=== PATIENT | male | born 1955 | race Caucasian/White ===

== ENCOUNTER 2021-04-17 15:24 | Emergency (ER) | payer MEDICARE, OTHER ==
[~2021-04-17] VITALS: Ht 177.8 cm; Wt 87.0 kg
[2021-04-17 15:49] VITALS: BP_SYST 131; BP_SYST 132; BP_SYST 136; BP_DIAS 68; BP_DIAS 69; BP_DIAS 72
--- NOTE | 2021-04-17 16:36 | ED General ---
General Chief Complaint: Dizziness/Syncope Stated Complaint: DIZZY Nursing Triage Note: Patient presents to the ED with c/o dizziness. 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 He states, "I felt like I was drunk". Patient still reports, "feeling weird" upon arrival. 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 He states that he felt like he was drunk and like he might fall over. He tried walking up to the front of the building and was leaning to the side. He did not actually fall to the ground but felt like he might. He denied any numbness, tingling, weakness in any of his arms or legs. He had no change in his vision. He denied having any chest pain or abdominal pain. He states he had a mild headache behind his eyes and in the frontal area. He had just eaten lunch arou nd 1 PM. He denies having symptoms like this before. Nothing seems to make it better and over time it was gradually improving. He has tried going to urgent care and they directed him here to the emergency department. He states overall he is generally healthy and does not take medications or have chronic medical conditions. His family tends to be healthy. Timing/Duration: 1-3 Hours (around [id number]) Associated Systoms: No Chest Pain, No Cough, No Diaphoresis, No Fever/Chills; Headaches (mild frontal ); No Loss of Appetite, No Malaise, No Nausea/Vomiting, No Rash, No Seizure, No Shortness of Air, No Syncope, No Weakness Allergies and Home Medications Allergies Coded Allergies: No Known Drug Allergies (Unverified , 04/17/21) Patient Home Medication List Home Medication List Reviewed: Yes Review of Systems Review of Systems Constitutional: No chills, No diaphoresis; dizziness; No fever, No weakness EENTM: No ear discharge, No hearing loss, No ear pain, No blurred vision, No double vision, No vision loss, No epistaxis, No nose congestion Respiratory: No cough, No short of breath Cardiovascular: No chest pain Gastrointestinal: No nausea, No vomiting Genitourinary: No dysuria, No frequency Musculoskeletal: no symptoms reported Skin: No rash Psychiatric/Neurological: See HPI; Denies Numbness, Denies Paresthesia, Denies Tingling, Denies Weakness Past Gexoevr-Cvkhaf-Yynnma Hx Patient Social History Tobacco Use?: No Use of E-Cig and/or Vaping dev: No Substance use?: No Alcohol Use?: Yes Alcohol type: Beer Alcohol Frequency: Daily Pt feels they are or have been: No Immunizations Up To Date First/Initial COVID19 Vaccinat: Not currently vaccinated Past Medical History Surgeries: No Respiratory: No Cardiac: No Neurological: No Genitourinary: No Gastrointestinal: No Musculoskeletal: No Endocrine: No HEENT: No Psychosocial: No Integumentary: No Physical Exam Vital Signs Vital Signs - First Documented 04/17/21 15:47 Temp 36.4 Pulse 72 Resp 18 B/P (MAP) 157/79 (105) Pulse Ox 96 O2 Delivery Room Air Capillary Refill : Less Than 3 Seconds Height, Weight, BMI Height: '" Weight: lbs. oz. kg; 27.00 BMI Method: General Appearance: No Apparent Distress, WD/WN Eyes: Bilateral Eye PERRL, Bilateral Eye EOMI HEENT: TMs Normal, Normal ENT Inspection, Pharynx Normal, Moist Mucous Membranes, Other (No nystagmus. No dizziness elicited with movement of head or eyes) Neck: Full Range of Motion, Normal Inspection, Non Tender, Supple; No Carotid Bruit Respiratory: Chest Non Tender, Lungs Clear, Normal Breath Sounds, No Accessory Muscle Use, No Respiratory Distress Cardiovascular: No Murmur, Normal Peripheral Pulses Gastrointestinal: Normal Bowel Sounds, No Pulsatile Mass, Non Tender, Soft Rectal: Deferred Extremity: Normal Capillary Refill, Normal Inspection, Normal Range of Motion, Non Tender, No Calf Tenderness, No Pedal Edema Neurologic/Psychiatric: Alert, Oriented x3, No Motor/Sensory Deficits, Normal 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/Affect, 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 Norm as Tested Skin: Normal Color, Warm/Dry Progress/Results/Core Measures Suspected Sepsis SIRS Temperature: Pulse: 82 Respiratory Rate: 18 Laboratory Tests 04/17/21 16:25: White Blood Count 8.7 Blood Pressure 131 /69 Mean: 89 Laboratory Tests 04/17/21 16:25: Creatinine 1.25, INR Comment 1.0, Platelet Count 239, Total Bilirubin 0.6 Results/Orders Lab Results Laboratory Tests Test 04/17/21 16:25 04/17/21 17:15 Range/Units White Blood Count 8.7 4.3-11.0 10^3/uL Red Blood Count 4.55 4.30-5.52 10^6/uL Hemoglobin 14.5 13.3-17.7 g/dL Hematocrit 42 40-54 % Mean Corpuscular Volume 93 80-99 fL Mean Corpuscular Hemoglobin 32 25-34 pg Mean Corpuscular Hemoglobin Concent 34 32-36 g/dL Red Cell Distribution Width 11.7 10.0-14.5 % Platelet Count 239 130-400 10^3/uL Mean Platelet Volume 9.9 9.0-12.2 fL Immature Granulocyte % (Auto) 1 % Neutrophils (%) (Auto) 70 42-75 % Lymphocytes (%) (Auto) 18 12-44 % Monocytes (%) (Auto) 10 0-12 % Eosinophils (%) (Auto) 1 0-10 % Basophils (%) (Auto) 1 0-10 % Neutrophils # (Auto) 6.1 1.8-7.8 X 10^3 Lymphocytes # (Auto) 1.5 1.0-4.0 X 10^3 Monocytes # (Auto) 0.9 0.0-1.0 X 10^3 Eosinophils # (Auto) 0.1 0.0-0.3 10^3/uL Basophils # (Auto) 0.0 0.0-0.1 10^3/uL Immature Granulocyte # (Auto) 0.1 0.0-0.1 10^3/uL Prothrombin Time 13.3 12.2-14.7 SEC INR Comment 1.0 0.8-1.4 Activated Partial Thromboplast Time 26 24-35 SEC Sodium Level 133 L 135-145 MMOL/L Potassium Level 4.5 3.6-5.0 MMOL/L Chloride Level 100 98-107 MMOL/L Carbon Dioxide Level 26 21-32 MMOL/L Anion Gap 7 5-14 MMOL/L Blood Urea Nitrogen 15 7-18 MG/DL Creatinine 1.25 0.60-1.30 MG/DL Estimat Glomerular Filtration Rate 58 BUN/Creatinine Ratio 12 Glucose Level 96 70-105 MG/DL Calcium Level 9.1 8.5-10.1 MG/DL Corrected Calcium 9.0 8.5-10.1 MG/DL Magnesium Level 2.3 1.6-2.4 MG/DL Total Bilirubin 0.6 0.1-1.0 MG/DL Aspartate Amino Transf (AST/SGOT) 18 5-34 U/L Alanine Aminotransferase (ALT/SGPT) 16 0-55 U/L Alkaline Phosphatase 51 40-136 U/L Troponin I < 0.30 <0.30 NG/ML Pro-B-Type Natriuretic Peptide 46.3 <75.0 PG/ML Total Protein 6.8 6.4-8.2 GM/DL Albumin 4.1 3.2-4.5 GM/DL Lipase 24 8-78 U/L Urine Color YELLOW Urine Clarity CLEAR Urine pH 7.5 5-9 Urine Specific [place] 1.015 L 1.016-1.022 Urine Protein NEGATIVE NEGATIVE Urine Glucose (UA) NEGATIVE NEGATIVE Urine Ketones NEGATIVE NEGATIVE Urine Nitrite NEGATIVE NEGATIVE Urine Bilirubin NEGATIVE NEGATIVE Urine Urobilinogen 0.2 < = 1.0 MG/DL Urine Leukocyte Esterase NEGATIVE NEGATIVE Urine RBC (Auto) NEGATIVE NEGATIVE Urine RBC RARE /HPF Urine WBC RARE /HPF Urine Squamous Epithelial Cells RARE /HPF Urine Crystals NONE /LPF Urine Bacteria NEGATIVE /HPF Urine Casts NONE /LPF Urine Mucus NEGATIVE /LPF Urine Culture Indicated NO My Orders Orders - PLACIDO MUNOZ MD Magnesium (04/17/21 16:03) Chest 1 View Ap/Pa Only (04/17/21 16:03) Ekg Tracing (04/17/21 16:03) Comprehensive Metabolic Panel (04/17/21 16:03) Protime With Inr (04/17/21 16:03) Partial Thromboplastin Time (04/17/21 16:03) O2 (04/17/21 16:03) Monitor-Rhythm Ecg Trace Only (04/17/21 16:03) Ed Iv/Invasive Line Start (04/17/21 16:03) Lipase (04/17/21 16:03) Troponin I Fs (04/17/21 16:03) Probnp Fs (04/17/21 16:03) Ct Head Wo (04/17/21 16:03) Ua Culture If Indicated (04/17/21 17:15) Ns Iv 1000 Ml (Sodium Chloride 0.9%) (04/17/21 17:27) Ct Angio Head/Neck (04/17/21 17:27) Iohexol Injection (Omnipaque 350 Mg/Ml 1 (04/17/21 17:30) Received Contrast (Hold Metformin- Contr (04/17/21 17:30) Ns (Ivpb) (Sodium Chloride 0.9% Ivpb Bag (04/17/21 17:30) Sodium Chloride Flush (Catheter Flush Sy (04/17/21 17:30) Cbc With Automated Diff (04/17/21 16:25) Medications Given in ED Current Medications Medications Dose Ordered Sig/Kimani Route Start Time Stop Time Status Last Admin Dose Admin Iohexol 80 ml ONCE ONCE IV 04/17/21 17:30 04/17/21 18:04 DC 04/17/21 17:47 80 ML Sodium Chloride 10 ml NEEDED PRN IV 04/17/21 17:30 04/17/21 18:58 DC 04/17/21 17:47 10 ML Sodium Chloride 100 ml ONCE ONCE IV 04/17/21 17:30 04/17/21 18:04 DC 04/17/21 17:47 80 ML Vital Signs/I&O 04/17/21 04/17/21 04/17/21 15:47 15:49 19:03 Temp 36.4 36.4 Pulse 72 72 64 73 82 Resp 18 18 B/P (MAP) 157/79 (105) 132/68 (89) 143/76 136/72 (93) 131/69 (89) Pulse Ox 96 96 O2 Delivery Room Air Room Air Capillary Refill : Less Than 3 Seconds Blood Pressure Mean: 89 Progress Note #1: Progress Note Obtain basic labs as well as electrocardiogram, cardiac labs, urinalysis, chest x-ray, CT scan of his head. He does not have any fluid behind his ears or cerumen impaction seen on exam. He could still have an inner ear vertigo type issue. However with no nystagmus or change with movement of his head that is decreased as well. The CT head would help to evaluate for possible stroke, intracerebral hemorrhage, mass, sinusitis. Labs to help evaluate for electrolyte imbalance, cardiac disease, renal or hepatic dysfunction. Monitor for arrhythmia. Progress Note #2: Progress Note Electrocardiogram did not show any acute ST elevation or arrhythmia. His chest x-ray was clear and the CT scan of his head did not demonstrate any acute hemorrhage or definite stroke. His labs were not showing any acute abnormal findings on the blood count. The chemistry panel was delayed due to mechanical layers with the instrument. Once the chemistry was back and his creatinine levels show no evidence of renal dysfunction. He was seen to not be elevated a CT angiogram was performed to look for clots or narrowing of the blood vessels. Progress Note #3: Progress Note Urinalysis did not demonstrate any acute dehydration however he had mild elevation of his creatinine and GFR so a liter of normal saline was administered. The CT angiogram did not demonstrate any definite clot or obstruction. 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 Counseled patient and family about results and as he was feeling a little bit better had no definite stroke or abnormality to account for symptoms were found I did advise him that admission and continued monitoring as well as possible echocardiogram and MRI might be additional testing that could be pe rformed to help further look for reasons he would have this acute onset dizziness. Patient and spouse instead felt that they would prefer to follow-up with the clinic and return if he had recurrent or worsening symptoms. As he had no acute abnormality on his testing that indicated severe findings and his symptoms had improved without treatment will allow him to go home with close clinic follow up and strict return precautions if he has worsening or new symptoms. ECG Initial ECG Impression Date: Apr 17, 2021 Initial ECG Impression Time: 15:49 Initial ECG Rate: 72 Initial ECG Rhythm: Normal Sinus Initial ECG Comparisson: No Previous ECG Available Comment Normal sinus rhythm with heart rate of 72 bpm. OH interval [address] elevation. QT interval 388 ms with a QTc interval of 425 ms. No prior tracing available for comparison. Diagnostic Imaging Diagonstic Imaging: CT Plain Films/CT/US/NM/MRI: head Comments [facility]. [place], [place] NAME: SUJATA MANRIQUEZ Karen [facility] REC#: [id number] PT STATUS: REG ER : 1955 PHYSICIAN: PLACIDO MUNOZ MD ADMIT DATE: 04/17/21/ER FS Signed Date of Exam:04/17/21 CT HEAD WO PROCEDURE: CT head without contrast. TECHNIQUE: Multiple contiguous axial images were obtained through the brain without the use of intravenous contrast. Auto Exposure Controls were utilized during the CT exam to meet ALARA standards for radiation dose reduction. INDICATION: 65-year-old male presents to the Emergency Room with dizziness and short bout of difficulty walking. COMPARISON: None. FINDINGS: The midline structures are not displaced. There are senescent changes in the brain with involutional changes and generalized atrophy, advanced for age. There is otherwise no evidence of mass, mass effect, hydrocephalus, or hemorrhage. The sanford-white differentiation is normal. There is no sulcal effacement. There are no abnormal extra-axial fluid collections or hemorrhage. The basilar cisterns appear normal. The sinuses, orbits, and mastoid air cells are unremarkable. Bone windows show no calvarial changes. IMPRESSION: Slightly advanced for age generalized atrophy with involutional changes; otherwise, unremarkable nonenhanced CT head. Dictated by: Dictated on workstation # [id number] Dict: 04/17/211643 Trans: 04/17/211648 [id number] Interpreted by: GÓMEZ KENNEDY MD Electronically signed by: GÓMEZ KENNEDY MD 04/17/211648 Reviewed: Reviewed by Nd Diagonstic Imaging: Xray Plain Films/CT/US/NM/MRI: chest Comments [facility] [place], [place] NAME: MITRASUJATA D [facility] REC#: [id number] PT STATUS: REG ER : 1955 PHYSICIAN: PLACIDO MUNOZ MD ADMIT DATE: 04/17/21/ER FS Signed Date of Exam:04/17/21 CHEST 1 VIEW AP/PA ONLY PATIENT HISTORY: Dizzy, near syncope. TECHNIQUE: Single frontal view of the chest. COMPARISON: None. FINDINGS: The lung volumes are normal. No focal consolidation is seen. No large pleural effusion or pneumothorax is seen. The cardiomediastinal silhouette is normal in size and contour. No acute osseous abnormality is seen. IMPRESSION: No acute pulmonary abnormality seen. Dictated by: Dictated on workstation # [id number] Dict: 04/17/211641 Trans: 04/17/211643 [facility] [id number] Interpreted by: NIA POTTS MD Electronically signed by: NIA POTTS MD 11/17/21 1644 Reviewed: Reviewed by Me Diagonstic Imaging: CT Plain Films/CT/US/NM/MRI: head (and neck angiogram) Comments [facility] [place], [place] NAME: SUJATA MANRIQUEZ [facility] REC#: [id number] PT STATUS: REG ER : 1955 PHYSICIAN: PLACIDO MUNOZ MD ADMIT DATE: 04/17/21/ER FS Draft Date of Exam:04/17/21 CT ANGIO HEAD/NECK PROCEDURE: CT angiography of the head and CT angiography of the neck with and without contrast. TECHNIQUE: Contiguous noncontrast images were obtained from the skull base through the vertex. After intravenous contrast administration, helical CT angiography of the neck was performed. Source data was reformatted into 3D MIP projections. Delayed post contrast acquisition was also obtained. Auto Exposure Controls were utilized during the CT exam to meet ALARA standards for radiation dose reduction. INDICATION: Dizziness. COMPARISON: Noncontrast CT head from earlier the same day. FINDINGS: CTA NECK: Included portions of the aortic arch are unremarkable. Origins of the major arch vessels are patent. Bilateral common carotid arteries are normal in course and caliber. Carotid bulbs are unremarkable as well. Bilateral internal carotid arteries are also normal in course and caliber. By NASCET criteria, there is no focal significant stenosis. There is no evidence of dissection or thrombosis. Within the posterior circulation, left vertebral artery is dominant. Right vertebral artery appears to terminate within the PICA. Vertebral arteries are otherwise patent. There is no evidence of dissection or thrombosis. Osseous structures show age-related degenerative changes. No acute osseous abnormality is seen. No lytic or blastic bony lesions are identified. Surrounding superficial soft tissue structures show no additional acute abnormality. Included portions of the lung apices are clear. CTA [place]: Anterior and middle cerebral arteries show normal opacification. There is no evidence of large vessel occlusion, aneurysm or vascular malformation. Within the posterior circulation, superior margins of the basilar artery have a diminutive appearance. There is also diminutive appearance of the bilateral superior cerebellar arteries. Bilateral P1 segments are absent. Bilateral posterior communicating arteries, however, are widely patent. There is otherwise normal appearance of the bilateral posterior cerebral arteries. Findings are consistent with persistent origins. There is no evidence of large vessel occlusion, aneurysm or vascular malformation within the posterior circulation. POSTCONTRAST CT HEAD: Postcontrast images show no abnormal areas of enhancement. There is no new mass effect or midline shift. There is no new loss of sanford-white matter junction differentiation to suggest new acute territorial infarct. No intra-axial or extra-axial intracranial hemorrhage is seen. No other extra-axial masses or fluid collections are identified. Bony calvarium remains intact. Visualized portions of the paranasal sinuses and mastoid air cells are clear. IMPRESSION: 1. Asymmetric diminutive appearance of the right vertebral artery, which appears to terminate in the right PICA. This is likely a congenital or developmental chronic finding. Otherwise, CTA of the neck is unremarkable. 2. Diminutive appearance to the superior portions of the basilar artery with persistent origin of the bilateral posterior cerebral arteries. This too is likely a developmental or congenital chronic finding. There is otherwise no evidence of large vessel occlusion, aneurysm or vascular malformation within the intracranial circulation. 3. No new acute intracranial abnormality. No CT evidence of acute infarct, mass or hemorrhage. Dictated on workstation # [id number] Dict: 04/17/21 1801 Trans: 04/17/21 1822 [facility] [id number] Interpreted by: TUNG CARTAGENA MD Electronically signed by: Reviewed: Reviewed by Me Departure Impression Primary Impression: Dizziness Additional Impression: Syncope, near Disposition: 01 HOME, SELF-CARE Condition: Improved Departure-Patient Inst. Decision time for Depature: 18:52 Referrals: DEVIN WHITE DO Patient Instructions: Dizziness, Adult ED, Near Fainting (DC) Add. Discharge Instructions: Drink more water and stay well hydrated. Check with Dr. White and his nurse practitioner Stevan about your symptoms from today. Call them tomorrow to let them know you were seen and had CT or CAT scans of the head and neck with and without contrast but no sign of bleeding or stroke. Your labs and heart tests all looked ok as well. If you have more problems or new symptoms return or seek medical care as you may need further testing such as ultrasound of your heart and MRI of the brain or other testing depending on your symptoms. All discharge instructions reviewed with patient and/or family. Voiced understanding. PLACIDO MUNOZ MD Apr 17, 2021 16:36
--- NOTE | 2021-04-17 16:44 | Diagnostic Imaging Report ---
PATIENT HISTORY: Dizzy, near syncope. TECHNIQUE: Single frontal view of the chest. COMPARISON: None. FINDINGS: The lung volumes are normal. No focal consolidation is seen. No large pleural effusion or pneumothorax is seen. The cardiomediastinal silhouette is normal in size and contour. No acute osseous abnormality is seen. IMPRESSION: No acute pulmonary abnormality seen. Dictated by: Dictated on workstation # [id number]
--- NOTE | 2021-04-17 16:47 | Diagnostic Imaging Report ---
PROCEDURE: CT head without contrast. TECHNIQUE: Multiple contiguous axial images were obtained through the brain without the use of intravenous contrast. Auto Exposure Controls were utilized during the CT exam to meet ALARA standards for radiation dose reduction. INDICATION: 65-year-old male presents to the Emergency Room with dizziness and short bout of difficulty walking. COMPARISON: None. FINDINGS: The midline structures are not displaced. There are senescent changes in the brain with involutional changes and generalized atrophy, advanced for age. There is otherwise no evidence of mass, mass effect, hydrocephalus, or hemorrhage. The sanford-white differentiation is normal. There is no sulcal effacement. There are no abnormal extra-axial fluid collections or hemorrhage. The basilar cisterns appear normal. The sinuses, orbits, and mastoid air cells are unremarkable. Bone windows show no calvarial changes. IMPRESSION: Slightly advanced for age generalized atrophy with involutional changes; otherwise, unremarkable nonenhanced CT head. Dictated by: Dictated on workstation # [id number]
[2021-04-17 16:53] LABS: PROTHROMBIN TIME PATIENT 13.3 SEC (12.2-14.7)
[2021-04-17 17:19] LABS: POTASSIUM 4.5 MMOL/L (3.6-5.0)
[2021-04-17 17:20] LABS: BILIRUBIN,TOTAL 0.6 MG/DL (0.1-1.0); CALCIUM 9.1 MG/DL (8.5-10.1); CREATININE SERUM 1.25 MG/DL (0.60-1.30); MAGNESIUM 2.3 MG/DL (1.6-2.4)
[2021-04-17 17:21] LABS: ALBUMIN 4.1 GM/DL (3.2-4.5); TOTAL PROTEIN 6.8 GM/DL (6.4-8.2)
[2021-04-17 17:25] LABS: BILIRUBIN,URINE NEGATIVE (NEGATIVE); CLARITY,URINE CLEAR; COLOR,URINE YELLOW; GLUCOSE, URINE (UA) NEGATIVE (NEGATIVE); KETONES,URINE NEGATIVE (NEGATIVE); LEUKOCYTE ESTERASE ,URINE NEGATIVE (NEGATIVE); NITRITE,URINE NEGATIVE (NEGATIVE); PH,URINE 7.5 (5-9); PROTEIN,URINE NEGATIVE (NEGATIVE)
[2021-04-17] MEDS ORDERED: NS IV 1000 ML 1,000 ML IV STA (17:27)
[2021-04-17] MEDS ORDERED: IOHEXOL 350 MG/ML 100 ML (OMNIPAQUE 350) VIAL IV ONE (17:30)
[2021-04-17] MEDS ORDERED: CATHETER FLUSH 10 ML SYR IV PRN (17:30)
[2021-04-17] MEDS ORDERED: NS 100 ML (IVPB) BAG IV ONE (17:30)
[2021-04-17] MEDS ORDERED: HOLD METFORMIN - RECEIVED CONTRAST 20 ML VIAL IV SCH (17:30)
[2021-04-17 17:35] LABS: BACTERIA,URINE NEGATIVE /HPF; RBC,URINE RARE /HPF; SQUAMOUS EPITHELIAL CELL,UR RARE /HPF; WBC,URINE RARE /HPF
[2021-04-17 17:46] LABS: HEMATOCRIT 42 % (40-54); HEMOGLOBIN 14.5 g/dL (13.3-17.7); LYMPHOCYTES % (AUTO) 18 % (12-44); MEAN CORPUSCULAR HEMOGLOBIN 32 pg (25-34); MEAN CORPUSCULAR HGB CONC 34 g/dL (32-36); MEAN CORPUSCULAR VOLUME 93 fL (80-99); MEAN PLATELET VOLUME 9.9 fL (9.0-12.2); MONOCYTES % (AUTO) 10 % (0-12); NEUTROPHILS % (AUTO) 70 % (42-75); PLATELET COUNT 239 10^3/uL (130-400); WHITE BLOOD COUNT 8.7 10^3/uL (4.3-11.0)
[2021-04-17 17:47] LABS: BASOPHILS % (AUTO) 1 % (0-10); EOSINOPHILS # (AUTO) 0.1 10^3/uL (0.0-0.3); EOSINOPHILS % (AUTO) 1 % (0-10); LYMPHOCYTES # (AUTO) 1.5 X 10^3 (1.0-4.0); MONOCYTES # (AUTO) 0.9 X 10^3 (0.0-1.0); NEUTROPHILS # (AUTO) 6.1 X 10^3 (1.8-7.8)
--- NOTE | 2021-04-17 18:24 | Diagnostic Imaging Report ---
PROCEDURE: CT angiography of the head and CT angiography of the neck with and without contrast. TECHNIQUE: Contiguous noncontrast images were obtained from the skull base through the vertex. After intravenous contrast administration, helical CT angiography of the neck was performed. Source data was reformatted into 3D MIP projections. Delayed post contrast acquisition was also obtained. Auto Exposure Controls were utilized during the CT exam to meet ALARA standards for radiation dose reduction. INDICATION: Dizziness. COMPARISON: Noncontrast CT head from earlier the same day. FINDINGS: CTA NECK: Included portions of the aortic arch are unremarkable. Origins of the major arch vessels are patent. Bilateral common carotid arteries are normal in course and caliber. Carotid bulbs are unremarkable as well. Bilateral internal carotid arteries are also normal in course and caliber. By NASCET criteria, there is no focal significant stenosis. There is no evidence of dissection or thrombosis. Within the posterior circulation, left vertebral artery is dominant. Right vertebral artery appears to terminate within the PICA. Vertebral arteries are otherwise patent. There is no evidence of dissection or thrombosis. Osseous structures show age-related degenerative changes. No acute osseous abnormality is seen. No lytic or blastic bony lesions are identified. Surrounding superficial soft tissue structures show no additional acute abnormality. Included portions of the lung apices are clear. CTA [place]: Anterior and middle cerebral arteries show normal opacification. There is no evidence of large vessel occlusion, aneurysm or vascular malformation. Within the posterior circulation, superior margins of the basilar artery have a diminutive appearance. There is also diminutive appearance of the bilateral superior cerebellar arteries. Bilateral P1 segments are absent. Bilateral posterior communicating arteries, however, are widely patent. There is otherwise normal appearance of the bilateral posterior cerebral arteries. Findings are consistent with persistent origins. There is no evidence of large vessel occlusion, aneurysm or vascular malformation within the posterior circulation. POSTCONTRAST CT HEAD: Postcontrast images show no abnormal areas of enhancement. There is no new mass effect or midline shift. There is no new loss of sanford-white matter junction differentiation to suggest new acute territorial infarct. No intra-axial or extra-axial intracranial hemorrhage is seen. No other extra-axial masses or fluid collections are identified. Bony calvarium remains intact. Visualized portions of the paranasal sinuses and mastoid air cells are clear. IMPRESSION: 1. Asymmetric diminutive appearance of the right vertebral artery, which appears to terminate in the right PICA. This is likely a congenital or developmental chronic finding. Otherwise, CTA of the neck is unremarkable. 2. Diminutive appearance to the superior portions of the basilar artery with persistent origin of the bilateral posterior cerebral arteries. This too is likely a developmental or congenital chronic finding. There is otherwise no evidence of large vessel occlusion, aneurysm or vascular malformation within the intracranial circulation. 3. No new acute intracranial abnormality. No CT evidence of acute infarct, mass or hemorrhage. Dictated by: Dictated on workstation # [id number]
[2021-04-17 19:03] VITALS: BP 143/76
== END 2021-04-17 18:58 | disposition home or self-care (01) ==
LOC: ER FS 15:26
DX: R42 Dizziness and giddiness (principal); R55 Syncope and collapse
CPT/HCPCS: 36415; 70450; 70496; 70498; 71045; 80053; 81000; 83690; 83735; 83880; 84484; 85025; 85027; 85610; 85730; 93005; 93041